=== PATIENT | female | born 1965 ===

== ENCOUNTER → 2018-02-16 13:12 | Outpatient (CLI) | payer OTHER, MEDICAID, SELFPAY ==
--- NOTE | 2018-02-16 | DI.RAD.S_ITS ---
PROCEDURE: XR HAND RT MIN 3V INDICATIONS: RIGHT HAND PAIN TECHNIQUE: 3 views of the hand(s) acquired. COMPARISON: None. FINDINGS: Bones: No fractures or dislocations. Carpal bones are normally aligned. No suspicious bony lesions. Joint spaces are maintained. Soft tissues: No suspicious soft tissue calcifications. IMPRESSION: Normal hand. Dictated by: Patrick Marion M.D. on 02/16/2018 at 13:32 Approved by: Patrick Marion M.D. on 02/16/2018 at 13:33
== END ==
PROVIDERS: Visit Provider Naturopath
DX: M79.641 Pain in right hand (principal)
CPT/HCPCS: 73130